=== PATIENT | female | born 1935 ===

== ENCOUNTER 2019-04-24 22:35 | Emergency (ER) | payer OTHER ==
[~2019-04-24] VITALS: Ht 154.9 cm; Wt 70.8 kg
[~2019-04-24 22:35] MED LIST: ASMALPRED PO; HYDRODIURIL12.5 MG PO; MOTRIN800 MG PO; TOPROL XL50 M1
[2019-04-24] MEDS ORDERED: ASPIR 8181 MG (22:51)
[2019-04-25] MEDS ORDERED: MOBIC15 MG PO (02:08)
== END 2019-04-25 02:43 | disposition home or self-care (01) ==
LOC: ER 22:35
DX: M25.552 Pain in left hip (principal); M25.562 Pain in left knee

== ENCOUNTER 2022-03-23 12:32 | Emergency (ER) | payer OTHER ==
[~2022-03-23] VITALS: Ht 165.1 cm; Wt 59.0 kg
[~2022-03-23 12:32] MED LIST changes: +ASPIR 8181 MG; +MOBIC15 MG PO
== END 2022-03-23 19:32 | disposition home or self-care (01) ==
LOC: ER 12:32
DX: S30.0XXA Contusion of lower back and pelvis, initial encounter (principal); S70.01XA Contusion of right hip, initial encounter; S40.011A Contusion of right shoulder, initial encounter; W19.XXXA Unspecified fall, initial encounter; Y93.9 Activity, unspecified; Y92.019 Unspecified place in single-family (private) house as the place of occurrence of the external cause; I10 Essential (primary) hypertension

== ENCOUNTER 2024-03-16 13:13 | Emergency (ER) | payer OTHER ==
[~2024-03-16] VITALS: Ht 165.1 cm; Wt 69.9 kg
[2024-03-16] MEDS ORDERED: CEFTRIAXONE SODIUM 1,000 MG VIAL IM ONE (15:00)
[2024-03-16] MEDS ORDERED: METHYLPREDNISOLONE SOD SUCC 40 MG VIAL IM ONE (15:00)
[2024-03-16] MEDS ORDERED: FAMOtidine 10 MG/ML (4ML VIAL) IV PUSH ONE (15:00)
[2024-03-16] MEDS ORDERED: KETOROLAC TROMETHAMINE 30 MG VIAL IM ONE (15:00)
[2024-03-16 16:05] LABS: HEMATOCRIT 35.4 % (36.0-45.00); HEMOGLOBIN 11.6 g/dL (12.0-15.00); MEAN CELL VOLUME 76.5 fL (80.00-100.00); MEAN CORPUSCULAR HGB CONC 32.7 g/dl (32.0-36.0); PLATELET COUNT 315 K/uL (150-450); RED BLOOD COUNT 4.62 M/uL (4.00-6.00)
[2024-03-16 16:10] LABS: ERYTHROCYTE SEDIMENTATION RATE 122 mm/hr
[2024-03-16 16:27] LABS: ALBUMIN 3.7 gm/dL (3.4-5.0); BILIRUBIN TOTAL 1.1 mg/dL (0.3-1.2); CALCIUM 9.7 mg/dL (8.5-10.1); CREATININE SERUM 0.71 mg/dL (0.55-1.02); GFR 77.69; GLOBULINA 4.9 G/DL (2.4-3.5); POTASSIUM 3.77 mEq/L (3.5-5.1); TOTAL PROTEIN 8.6 gm/dL (6.4-8.2)
[2024-03-16 16:33] LABS: C-REACTIVE PROTEIN 11.3 MG/DL (0.00-0.29)
== END 2024-03-16 17:05 | disposition home or self-care (01) ==
LOC: ER 13:13
PROVIDERS: General Practice
DX: M79.89 Other specified soft tissue disorders (principal); I10 Essential (primary) hypertension
CPT/HCPCS: 36415; 73090; 73130; 96365; 96372; 99283; J0696; J1885; J3490 ×2